=== PATIENT | male | born 1955 | race Caucasian/White ===

== ENCOUNTER → 2019-03-28 | Outpatient (CLI) | payer MEDICARE ==
--- NOTE | 2019-03-28 14:30 | KCIC ---
Examination: Right knee without contrast HISTORY: History of right knee pain COMPARISON: None available Technique: Multiplanar, multisequence MR imaging of the right knee without contrast. FINDINGS: Thickened appearance the anterior cruciate ligament with increased signal likely mucoid degeneration. The posterior cruciate ligament appear intact. Blunted appearance of the junction of body and posterior horn of the medial meniscus could be prior meniscectomy change or a tear. The lateral meniscus appears intact. The extensor mechanism is intact. Small knee joint effusion is identified. Moderate joint space loss identified in the medial, lateral, patellofemoral compartments. Mild superficial fraying of cartilage identified in the medial, lateral compartments. Deep fissuring of cartilage identified in the patellofemoral compartments. The medial, lateral retinaculum appears intact. Mild trabecular edema medial tibial plateau. Mild soft tissue edema identified anterior to the infrapatellar tendon. IMPRESSION: 1. Blunted appearance of the body and posterior horn of the medial meniscus probably prior surgery or tear. 2. 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 3. Moderate tricompartmental degenerative changes. Grade II chondromalacia patella. Electronically signed by: Ramon Villarreal MD (03/28/2019 2:27 PM) [id number]
== END | disposition home or self-care (01) ==
LOC: KCIC MRI 12:45
PROVIDERS: ATTEND Orthopaedic Surgery
DX: M17.11 Unilateral primary osteoarthritis, right knee (principal); M22.41 Chondromalacia patellae, right knee; M25.461 Effusion, right knee; Z98.890 Other specified postprocedural states
CPT/HCPCS: 73721

== ENCOUNTER → 2020-01-08 | Outpatient (CLI) | payer MEDICARE ==
--- NOTE | 2020-01-08 12:04 | KCIC ---
MRI RIGHT SHOULDER CLINICAL HISTORY: IMPINGEMENT SYNDROME OF RIGHT; Pt fell and landed on right arm several months ago. Pain and decreased ROM. TECHNIQUE: Routine non-contrast MRI of the shoulder COMPARISON: Right shoulder radiographs 12/28/2019 FINDINGS: Despite multiple attempts at reimaging, there is extensive motion artifact throughout nearly all sequences which limits evaluation. TENDONS: Supraspinatus: Moderate tendinosis with high-grade interstitial tearing in the anterior two thirds of the tendon at its insertion. Infraspinatus: Mild tendinosis without discrete tear. Subscapularis: Moderate tendinosis with interstitial tearing of the superior fibers. Teres Minor: Intact. Biceps Tendon: The long head biceps tendon is intact and appropriately located. MUSCLES: Mild fatty replacement of the teres minor muscle, nonspecific. No visualized mass lesion in the quadrilateral space. Rotator cuff muscle bulk and signal intensity otherwise maintained. LABRUM: Circumferential labral degeneration with possible degenerative tearing in the superior labrum, suboptimally evaluated due to prominent motion artifact. GLENOHUMERAL JOINT: Joint fluid: No joint effusion or synovitis. Cartilage: No full-thickness chondral defect. ACROMIOCLAVICULAR JOINT: Moderate to severe hypertrophic degenerative changes. BONES/MARROW: No evidence of acute fracture or suspicious marrow replacing process. OTHER: No other significant abnormality identified. IMPRESSION: Limited evaluation secondary to prominent motion artifact. High-grade interstitial tearing in the supraspinatus tendon and rotator cuff tendinosis as described. Moderate to severe hypertrophic acromioclavicular degenerative changes. Electronically signed by: Giovany Mast DO (01/08/2020 12:01 PM) [id number]
== END | disposition home or self-care (01) ==
LOC: KCIC MRI 09:20
PROVIDERS: ATTEND Orthopaedic Surgery
DX: M75.101 Unspecified rotator cuff tear or rupture of right shoulder, not specified as traumatic (principal); M19.011 Primary osteoarthritis, right shoulder; M75.41 Impingement syndrome of right shoulder
CPT/HCPCS: 73221

== ENCOUNTER → 2020-07-03 | Outpatient (CLI) | payer MEDICARE ==
--- NOTE | 2020-07-03 16:39 | KCIC ---
EXAMINATION: MRI LEFT LOWER EXTREMITY JOINT WITHOUT INDICATIONS: Left knee pain medially for 4-6 weeks. Prior surgery years ago.. TECHNIQUE: Multiplanar multisequence MRI of the left knee was obtained without contrast. COMPARISON: None. FINDINGS: MENISCI: The body, posterior horn, and posterior root medial meniscus are blunted, greatest in the p osterior horn which is diminutive. This is all likely postsurgical. There is no abnormal signal in th e remaining medial meniscus. Increased signal in the substance of the anterior horn-root lateral meni scus is likely mucoid degeneration. No lateral meniscus tear. LIGAMENTS: Marked thickening and increased signal of the anterior cruciate ligament is consistent wi th mucoid degeneration. Posterior cruciate ligament, medial collateral ligament, and lateral collater al ligament complex are intact. EXTENSOR MECHANISM: The quadriceps and patellar tendons are intact. Sequela of arthroscopy in Hoffa' s fat pad.. Retinacula are intact. BONES AND CARTILAGE: There is deep partial thickness cartilage loss in the central weightbearing med ial compartment peripherally with small subchondral cyst. Lateral compartment cartilage is intact. Fo akin area of deep partial thickness cartilage loss along the lateral patellar facet and deep cartilage fissures at the trochlear groove. No acute fracture. Marrow signal is normal. OTHER: Small joint effusion. Small Aguayo cyst. Remaining tendons and muscles are normal. IMPRESSION: 1. Blunted body, posterior root, and posterior horn medial meniscus, most likely all postsurgical alt jocelyn meniscal tear is possible. 2. 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 3. Areas of deep partial-thickness cartilage loss in the medial and patellofemoral compartment, great est in the medial compartment. 4. Small joint effusion and small Aguayo cyst. Electronically signed by: Nola Lubin MD (07/03/2020 4:36 PM) [id number]
== END ==
LOC: KCIC MRI 12:54
PROVIDERS: ATTEND Orthopaedic Surgery
DX: M17.12 Unilateral primary osteoarthritis, left knee (principal); M25.462 Effusion, left knee; M71.22 Synovial cyst of popliteal space [Baker], left knee
CPT/HCPCS: 73721